=== PATIENT | male | born 1965 | race African-American/Black ===

== ENCOUNTER 2017-03-21 11:48 | Inpatient (IN) ==
[2017-03-21] MEDS ORDERED: NS 1,000 ML IV ONE (12:16)
--- NOTE | 2017-03-21 12:28 | Emergency Department Report ---
Seizure HPI - General Chief Complaint: Seizure Stated Complaint: Pos Seizure this morning Time Seen by Provider: 03/21/17 11:59 - History of Present Illness HPI Narrative: 52-year-old gentleman presents status post seizure. He has a history of moderate MR with family caring for him. His brother is here presently. Patient had a seizure this morning, continued postictal and the brother became concerned. He had seizures previously but has not had upper some time. He is currently not on any seizure medication. Patient was in the room being checked in and had a another seizure. This was an obviously tonic clonic generalized seizure, he vomited and aspirated during the seizure as we were rolling into his side. - Related Data Home Medications Medication Instructions Recorded Confirmed No known Home medications [No home 03/21/17 03/21/17 meds] Allergies Allergy/AdvReac Type Severity Reaction Status Date / Time Penicillins Allergy Unknown Verified 03/21/17 15:07 Review of Systems Limitations: ROS unobtainable due to patient's medical condition [facility] Patient Stated Medical History Seizures Yes Other Behavioral Health Yes: MR SINCE Surgical History: Negative per brother - Social History Smoking status: Never smoker Substance use type: does not use Alcohol intake frequency: does not drink Physical Exam - Limitations Limitations: altered mental status - General General appearance: obtunded - Normal Exams: Head:: Normocephalic without trauma Chest/Respirations:: Clear all vasquez, with good airflow, and symmetry bilaterally Cardiovascular:: Regular rate and rhythm, without murmur or gallop, Pulses 2+ all extremities, capillary refill, <2 seconds all extremities Abdomen:: Bowel sounds positive, soft, non-tender, non-distended, no hepatosplenomegaly, masses or bruits noted - Neurological Exam Neurological exam: Present: other (patient actively seizing during initial exam. Tonic-clonic activity noted. Patient nonresponsive. He did vomit and aspirate during the seizure.) Course Vital Signs Temperature 100.0 F 03/21/17 11:50 Pulse Rate 92 03/21/17 11:50 Respiratory Rate 16 03/21/17 11:50 Blood Pressure 144/71 H 03/21/17 11:50 Pulse Oximetry 96 03/21/17 11:50 Temperature 100.0 F 03/21/17 11:50 Pulse Rate 78 03/21/17 12:40 Respiratory Rate 22 03/21/17 13:37 Blood Pressure 144/71 H 03/21/17 11:50 Pulse Oximetry 95 03/21/17 13:37 Seizure - MDM Narrative Medical decision making narrative: Patient has been very high functioning, living on his own with a roommate. He holds down a job. 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 He has not been acting depressed or had any significant change in mood lately. No obvious cause for possible seizure at home is noted. White count returns at 16.8 with elevated anion gap and sodium is elevated at 147.. CT scan of brain was negative. Patient had 2 witnessed tonic-clonic generalized seizures while in the emergency department. With the initial seizure, he vomited and likely aspirated a small amount as he was coughing afterwards. He received 2 mg of Ativan both times which aborted the seizure. He was given 1 L of normal saline while in the emergency department. Phenytoin was started with initial dose of [address] Luna was consulted and came to see the patient. Patient will be admitted to hospitalist service for possible aspiration during seizure, elevated sodium, elevated anion gap. - Differential Diagnosis Likely: generalized seizure, new onset seizure, epileptic seizure - Medical Records Attestation: I reviewed the patient's medical records. - Lab Data Attestation: I reviewed the patient's lab results. Result diagrams: 03/21/17 12:22 03/21/17 12:22 Lab Results 03/21/17 03/21/17 Range/Units 12:22 12:22 WBC 16.8 H (4.5-11.0) T/MM3 RBC 5.27 (4.50-5.90) M/MM3 Hgb 15.2 (13.5-17.5) GM/DL Hct 46.3 (41-53) % MCV 87.9 (80-100) UM3 MCH 28.8 (26-34) UUG MCHC 32.8 (31-37) GM/DL RDW Std Deviation 44.0 (36.9-50.2) FL Plt Count 246 (130-400) T/MM3 MPV 10.2 (9.4-12.4) UM3 Neutrophils % (Manual) 81.0 H (33-66) % Band Neutrophils % 1.0 (0-6) % Lymphocytes % (Manual) 17.0 L (23-45) % Monocytes % (Manual) 1.0 (0-9.0) % RBC Morph Comment Normal Turbidity < 20 (0-20) Sodium 147 H (134-144) MEQ/L Potassium 4.3 (3.6-5) MEQ/L Chloride 109 H (98-107) MEQ/L Carbon Dioxide 20 L (22-30) MEQ/L Anion Gap 18 H (5-15) MEQ/L BUN 14.0 (9-20) MG/DL Creatinine 1.5 (0.8-1.5) MG/DL GFR Calculation 49 BUN/Creatinine Ratio 9 (6-26) RATIO Glucose 123 H (75-110) MG/DL Calculated Osmolality 284 H (261-280) MOSM/KG Calcium 9.6 (8.4-10.2) MG/DL Icterus Index < 2 (0-7) Prolactin 8.0 NG/ML Specimen Hemolysis < 15 (0-25) Disposition Clinical Impression: Generalized convulsive seizure Disposition: 02 To [facility] [place] Acute Care Condition: Stable Prescriptions: No Action No known Home medications [No home meds] 0 #0 misc Time of Disposition: 16:05 - Seen By: physician
--- NOTE | 2017-03-21 12:47 | CT Scan Report ---
Indication: seizure PROCEDURE: CT head/brain wo con: Encounter: Initial Comparison: October 15, 2008 Technique: Axial CT images through the head were performed without contrast. Iterative Reconstruction dose reducing technique was utilized. FINDINGS: The ventricles are of normal size, shape, and contour for the patient's age. The brainstem, cerebellum, and cerebral hemispheres have a normal morphology and CT attenuation. There is no evidence of midline displacement. No hemorrhage, signs of acute territorial stroke, mass effect, mass lesions, or edema is evident. The visualized portions of the skull base, midface, and calvarium demonstrate no abnormality. The paranasal sinuses are well aerated and free of significant disease. The tympanic and mastoid cavities appear normal. IMPRESSION: No acute intracranial abnormality or hemorrhage. .
--- NOTE | 2017-03-21 13:22 | XRay Report ---
INDICATION: seizure, aspiration PROCEDURE: CHEST 2-VIEWS UPRIGHT (PA & LAT) Encounter: Initial COMPARISON: None FINDINGS: The lungs are mildly hypoinflated, but grossly clear without evidence of focal abnormal airspace opacity. There is no pleural effusion or pneumothorax. The heart size, mediastinal contours and pulmonary vascularity are within normal limits. There is no significant skeletal abnormality. IMPRESSION: No acute cardiopulmonary disease. .
[2017-03-21] MEDS ORDERED: ALBUTEROL/IPRATROPIUM 2.5mg-0.5mg/3ml NEB AEROSOL ONE (13:23)
[2017-03-21] MEDS: SALINE FLUSH 10ml SYRINGE IVF PRN (14:23)
[2017-03-21] MEDS ORDERED: NS IV ONE (14:45)
[2017-03-21] MEDS ORDERED: PHENYTOIN IV ONE (14:45)
--- NOTE | 2017-03-21 16:32 | History & Physical Report ---
<Jhoana Au - Last Filed: 03/21/17 18:43> History of Present Illness Date: 03/21/17 Chief complaint: seizure HPI: Patient is a 52-year-old intellectually disabled male who presented to the emergency room status post seizure with his brother. Patient's brother received a phone call from patient's boss that he hadn't come to work so brother went to check on him at his home. Found him kneeling on the floor leaning on his bed. He was responsive, but lethargic and week. His brother and "lady friend" (who also have intellectual disability) were at the house with him. They reported he had been "shaking" earlier and suggested the brother go check on in him because he was still in bed. It was clear to his brother that patient had probably had a seizure so he brought him to the ER. Brother reports he thinks he has had some small seizures in the past, but has never been on seizure medicine. His PCP is Dr. Mcarthur, but brother reports he rarely needs to go to the doctor. 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 His brother manages his finances. He does not drive. He currently has a "lady friend" who is staying with him at his home. Patient was initially seen in the ER with his brother present. He is post- ictal and nonresponsive thus history is obtained from his brother. Patient recieved 2 doses of IV lorazepam 2mg for 2 seizures he experienced in the ED. Seizures responded to treatment. He was given a loading dose of dilantin in the ER and Dr. Luna saw patient in the ED as well. Dr Parish accepted patient for IP hospitalization following stabilization. 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 remote h/o head injury thought to possibly be the cause (or contribute to) his seizure d/o - had a bleed without intervention Surgical History: vasectomy Family History: Father - diabetes Mother - at age 52 of glioblastoma 2 siblings in infancy of pneumonia 2 living brothers - one with seizure d/o and intellectual disability, other brother in good health and is patient's caregiver - Social History Smoking status: Never smoker Substance use type: does not use Alcohol intake frequency: does not drink Household members: other (female friend (who also has intellectual disability)) Current residence: Apartment/Private Home Social history: never - no children Has a female "friend" who lives with him. He is a butter printer at [employer] and gets disability for blindness in one eye Brother in charge of his finances Patient does not drive. Rides bike for transportation. Brother - Dominic Gonzales [phone] Medications Home Medications Medication Instructions Recorded Confirmed Type No known Home medications [No home 03/21/17 03/21/17 History meds] Allergies Allergy/AdvReac Type Severity Reaction Status Date / Time Penicillins Allergy Unknown Verified 03/21/17 15:07 Exam Vital Signs: Temperature 100.0 F 03/21/17 11:50 Pulse Rate 78 03/21/17 12:40 Respiratory Rate 22 03/21/17 13:37 Blood Pressure 144/71 H 03/21/17 11:50 Pulse Oximetry 95 03/21/17 13:37 Height/Weight/BMI: Height 1.7 m Weight 69.4 kg - Constitutional Present: well nourished, well developed, obtunded - Routine HEENT Exam Head: Present: normocephalic, atraumatic Comments: unable to assess d/t mental status - Routine Neck Exam Absent: lymphadenopathy, thyromegaly - Routine Respiratory Exam Present: CTA bilaterally. Absent: wheezes - Routine Cardiovascular Exam Present: RRR, S1, S2. Absent: murmur - Routine Abdominal Exam Present: soft, normoactive bowel sounds, non distended. Absent: tenderness - Routine Extremities Exam Present: no edema, normal capillary refill - Routine Skin Exam Present: dry, warm - Routine Neurological Exam Present: altered mental status (patient is unresponsive at time of exam). Absent: alert, oriented X3 - Routine Psychiatric Exam Present: unable to assess Results - Labs CBC & Chem 7: 03/21/17 12:22 03/21/17 18:04 Labs: Laboratory Tests 03/21/17 18:04 Creatine Kinase 3847 H - Imaging and Cardiology Chest x-ray Additional comments: IMPRESSION: No acute cardiopulmonary disease. CT scan - head Additional comments: Date of Exam: 03/21/17 Ordering Provider: Scot Cole MD Type of Exam(s): CT head/brain wo con Reason for Exam(s): seizure Indication: seizure PROCEDURE: CT head/brain wo con: Encounter: Initial Comparison: October 15, 2008 Technique: Axial CT images through the head were performed without contrast. Iterative Reconstruction dose reducing technique was utilized. FINDINGS: The ventricles are of normal size, shape, and contour for the patient's age. The brainstem, cerebellum, and cerebral hemispheres have a normal morphology and CT attenuation. There is no evidence of midline displacement. No hemorrhage, signs of acute territorial stroke, mass effect, mass lesions, or edema is evident. The visualized portions of the skull base, midface, and calvarium demonstrate no abnormality. The paranasal sinuses are well aerated and free of significant disease. The tympanic and mastoid cavities appear normal. IMPRESSION: No acute intracranial abnormality or hemorrhage. . Assessment and Plan (1) Generalized convulsive seizure Current visit: Yes Status: Acute DVT Prophylaxis: SCD's GI Prophylaxis: Protonix Resuscitation Status: Full Code Assessment and Plan: Assessment Generalized convulsive seizure Leukocytosis (POA) Hypernatremia (POA) Possible aspiration pneumonia` Intellectual development disability Plan Admit to inpatient status under care of the hospitalist team, Dr. Parish attending, under seizure precautions. Await recommendations from ED consult with Dr. Luna. Start empiric treatment for aspiration pneumonia given witnessed aspiration in ED, leukocytosis and fever. Levaquin IV 750 daily and clindamycin IV 300 every 6 hours (patient has penicillin allergy-will avoid Rocephin) and DuoNeb treatments ordered. SCDs for DVT prophylaxis Protonix IV for GI protection Check ABGs given patient's acidotic status. Check CPK for possible rhabdomyolysis given unknown status of how long patient may have been down with seizure. IVF's for hydration maintenance and hypernatremia Dilantin maintenance dosing to start at 2300. Loading dose given in ER. Pharmacy consult ordered. Lorazepam IV PRN seizure activity NPO until mental status improves. Given patient's mental status, seizure disorder, probable aspiration pneumonia and intellectual disability, it is expected his stay will exceed 2 overnights. On dismissal, his brother will help patient choose who he will establish with as his PCP since Dr. Mcarthur has retired. He is probably going to have him establish with another provider at [facility]. He'll need f-u with neuro as well. Case discussed with Dr. Parish. Hospital Course Summary Disclaimer: The visit summary below is not to be considered part of the above Progress Note. Hospital Course: 03/21/17 Assessment Generalized convulsive seizure Leukocytosis (POA) Hypernatremia (POA) Possible aspiration pneumonia` Intellectual development disability Plan Admit to inpatient status under care of the hospitalist team, Dr. Parish attending, under seizure precautions. Await recommendations from ED consult with Dr. Luna. Start empiric treatment for aspiration pneumonia given witnessed aspiration in ED, leukocytosis and fever. Levaquin IV 750 daily and clindamycin IV 300 every 6 hours (patient has penicillin allergy-will avoid Rocephin) and DuoNeb treatments ordered. SCDs for DVT prophylaxis Protonix IV for GI protection Check ABGs given patient's acidotic status. Check CPK for possible rhabdomyolysis given unknown status of how long patient may have been down with seizure. IVF's for hydration maintenance and hypernatremia Dilantin maintenance dosing to start at 2300. Loading dose given in ER. Pharmacy consult ordered. Lorazepam IV PRN seizure activity NPO until mental status improves. Given patient's mental status, seizure disorder, probable aspiration pneumonia and intellectual disability, it is expected his stay will exceed 2 overnights. On dismissal, his brother will help patient choose who he will establish with as his PCP since Dr. Mcarthur has retired. He is probably going to have him establish with another provider at [facility]. He'll need f-u with neuro as well. Case discussed with Dr. Parish. <Rakesh Parish - Last Filed: 03/21/17 19:32> History of Present Illness Date: 03/21/17 [facility] Patient Stated Medical History Seizures Yes Other Behavioral Health Yes: MR SINCE Exam Vital Signs: Temperature 100.1 F 03/21/17 16:38 Pulse Rate 112 H 03/21/17 16:54 Respiratory Rate 20 03/21/17 17:50 Blood Pressure 123/73 03/21/17 16:51 Pulse Oximetry 95 03/21/17 17:50 Height/Weight/BMI: Height 5 ft 7 in Weight 72.2 kg Body Mass Index 24.9 Results - Labs CBC & Chem 7: 03/21/17 12:22 03/21/17 18:04 Assessment and Plan (1) Generalized convulsive seizure Current visit: Yes Status: Acute Assessment and Plan: Above pt was seen and examined with Jhoana in the ED. Pt was in post ictal, appeared to be in no respiratory distress. Was not arousable, had received Dilantin load and IM benzos. On PE No tachypnea No blood in oral cavity neck supple Chest RRR no murmurs fair air entry Abd - soft NT/ND Ext - no edema Labs reviewed. Initial elevated A gap probably due to Lactic acidosis, now is better. CPK is high. Dx 1) Grand mal seizures, continue IV dilantin 100 mg TID 2) ?Aspiration PNA ? NPO for now. - Cover as above 3) Rhabdomyolisis - due to seizures vs prolongued post ictal (being on the floor for a while) - Hydrate gently - F/U CPK - F/U BMP - Time spent with patient 25 - 35 minutes Hospital Course Summary Disclaimer: The visit summary below is not to be considered part of the above Progress Note.
[2017-03-21] MEDS ORDERED: PANTOPRAZOLE 40 MG INJECTION IVP SCH (17:04)
[2017-03-21] MEDS: NS 1,000 ML IV SCH (17:16)
[2017-03-21] MEDS: CLINDAMYCIN PB 300 MG/50 ML BAG IV SCH ×2 (17:26→23:17)
[2017-03-21 17:36] VITALS: BMI 24.9
[2017-03-21] MEDS: ALBUTEROL/IPRATROPIUM 2.5mg-0.5mg/3ml NEB AEROSOL SCH ×2 (17:40→21:48)
[2017-03-21] MEDS: PANTOPRAZOLE 40 MG INJECTION IVP SCH (18:04)
[2017-03-21] MEDS: LEVOFLOXACIN PB 750 MG/150 ML BAG IV SCH (18:10)
[2017-03-21] MEDS: PHENYTOIN 100 MG/2 ML IVP SCH (23:17)
[2017-03-22] MEDS: CLINDAMYCIN PB 300 MG/50 ML BAG IV SCH ×4 (05:10→23:09)
[2017-03-22] MEDS: PHENYTOIN 100 MG/2 ML IVP SCH ×3 (06:24→23:08)
[2017-03-22] MEDS: ALBUTEROL/IPRATROPIUM 2.5mg-0.5mg/3ml NEB AEROSOL SCH ×4 (06:38→21:16)
--- NOTE | 2017-03-22 08:08 | Consultation ---
DATE: 03/21/2017 REFERRING PHYSICIAN: Dr. Cole CHIEF COMPLAINT: Seizure. HISTORY OF PRESENT ILLNESS Patient is a 52-year-old male with history of mild mental retardation associated with possible cerebral palsy and developmental problem and learning disability. The patient was in his normal state of health yesterday. He woke up this morning having some mild confusion and he was witnessed having recurrent seizure at home. Those were described as generalized tonic-clonic events with arm in flexion, eyes opened, and increased body tone lasting for about 20-30 seconds each. The patient was brought to the ER and he had two seizures in the ER for which she was given 2 mg of Ativan each. The patient responded to medication fine. During one of the events he had some mild aspiration. He had a CT of the head that showed no acute abnormalities. He also had a chest x-ray that showed no particular problem at that moment. The patient was later loaded with Dilantin 1000 mg IV due to recurrent seizures. He has done well since. The patient has been sedated and seizure-free for the past hour. The patient has a history of head injury and trauma about 5-7 years ago during which he had a mild intracranial hemorrhage as per his brother's information. He had no seizure at that time. He also has a history of seizure during childhood which later improved. He was not taking any particular seizure medication. PHYSICAL EXAMINATION The patient is sedated. He is sleeping at the moment. His eyes are closed. Pupils were around 1 mm and reactive bilaterally. The patient was withdrawing to painful stimulation bilaterally. Deep tendon reflexes were 2-/4. Plantar reflexes were in flexion bilaterally. Vitals were stable. ASSESSMENT Complex partial seizure with generalized tonic-clonic presentation. 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 PLAN 1. The patient was infused with fosphenytoin earlier today. He got 1000 mg IV infusion. The patient can receive another 100 mg IV infusion every 8 hours until he becomes fully awake and alert. Then the patient can be switched to oral Dilantin capsule 300 mg p.o. q.h.s. The patient's level of Dilantin needs to be rechecked within 2 weeks and the dosage will be adjusted accordingly. 2. The patient will be admitted overnight for observation. If he has any breakthrough seizure he can be given another boost of Ativan to control his seizures. MTDD
[2017-03-22] MEDS: PANTOPRAZOLE 40 MG INJECTION IVP SCH (08:36)
[2017-03-22] MEDS: NS 1,000 ML IV SCH ×3 (08:36→20:55)
--- NOTE | 2017-03-22 11:23 | Progress Note ---
Subjective: PT is awake alert and conversant, has no complaints. Objective Vital signs: Temperature 98.9 F 03/22/17 08:00 Pulse Rate 78 03/22/17 08:00 Respiratory Rate 16 03/22/17 10:17 Blood Pressure 114/77 03/22/17 08:00 Pulse Oximetry 97 03/22/17 10:17 Rhythm: Normal Sinus Rhythm Height/Weight/BMI: Height 5 ft 7 in Weight 73.5 kg Body Mass Index 24.9 - Constitutional Present: no acute distress - Routine HEENT Exam Head: Present: normocephalic, atraumatic Eye: Present: EOMI, PERRL - Routine Respiratory Exam Present: CTA bilaterally - Routine Cardiovascular Exam Present: RRR - Routine Abdominal Exam Present: soft, non distended, non tender - Routine Extremities Exam Absent: cyanosis, clubbing, edema - Routine Neurological Exam Present: alert, oriented X3, CN II-XII intact - Routine Psychiatric Exam Present: normal affect, cooperative Results - Labs CBC & Chem 7: 03/22/17 04:49 03/22/17 04:49 - ABG Interpretation ABG results: 03/21/17 19:45 ABG pH 7.420 ABG pCO2 36 ABG pO2 73 L ABG HCO3 23 ABG Total CO2 24.5 ABG O2 Saturation 95.0 ABG Base Excess -0.7 Assessment and Plan (1) Generalized convulsive seizure Current visit: Yes Status: Acute DVT Prophylaxis: Lovenox GI Prophylaxis: Protonix Resuscitation Status: Full Code Assessment and Plan: SUMMARY - This is a 52 YO male with H.O remote seizures that came with grand mal seizures (witnessed in the ED). He was given IM benzos and loaded with Dilantin and is better today. DIAGNOSIS 1) Grand mal seizures - Will change to PO dilantin. - Continue present Rx. 2) ?Aspiration PNA ? NPO for now. - Check speech eval - Resume PO diet if OK with speech therapy. 3) Rhabdomyolisis - due to seizures vs prolongued post ictal (being on the floor for a while) - Increase IVF - Recheck CPK in the AM. Prevention PPI Lovenox. - Time spent with patient 25 - 35 minutes Sepsis Assessment - Evaluation Sepsis screening result: Sepsis Risk Hospital Course Summary Disclaimer: The visit summary below is not to be considered part of the above Progress Note. Hospital Course: 03/21/17 Assessment Generalized convulsive seizure Leukocytosis (POA) Hypernatremia (POA) Possible aspiration pneumonia` Intellectual development disability Plan Admit to inpatient status under care of the hospitalist team, Dr. Parish attending, under seizure precautions. Await recommendations from ED consult with Dr. Luna. Start empiric treatment for aspiration pneumonia given witnessed aspiration in ED, leukocytosis and fever. Levaquin IV 750 daily and clindamycin IV 300 every 6 hours (patient has penicillin allergy-will avoid Rocephin) and DuoNeb treatments ordered. SCDs for DVT prophylaxis Protonix IV for GI protection Check ABGs given patient's acidotic status. Check CPK for possible rhabdomyolysis given unknown status of how long patient may have been down with seizure. IVF's for hydration maintenance and hypernatremia Dilantin maintenance dosing to start at 2300. Loading dose given in ER. Pharmacy consult ordered. Lorazepam IV PRN seizure activity NPO until mental status improves. Given patient's mental status, seizure disorder, probable aspiration pneumonia and intellectual disability, it is expected his stay will exceed 2 overnights. On dismissal, his brother will help patient choose who he will establish with as his PCP since Dr. Mcarthur has retired. He is probably going to have him establish with another provider at [facility]. He'll need f-u with neuro as well. Case discussed with Dr. Parish.
--- NOTE | 2017-03-22 12:57 | XRay Report ---
INDICATION: F/U on ? of aspiration PROCEDURE: CHEST 2-VIEWS UPRIGHT (PA & LAT) Encounter: Initial COMPARISON: March 21, 2017 FINDINGS: Lungs remain hypoinflated. No gross consolidative process. No obvious pleural effusion or pneumothorax. Heart size and mediastinal contours are stable. Hiatal hernia. Impression: Hypoinflation without focal pneumonia or aspiration. .
[2017-03-22] MEDS: SALINE FLUSH 10ml SYRINGE IVF PRN (14:56)
[2017-03-22] MEDS: LEVOFLOXACIN PB 750 MG/150 ML BAG IV SCH (17:45)
[2017-03-23] MEDS: CLINDAMYCIN PB 300 MG/50 ML BAG IV SCH ×4 (04:39→23:03)
[2017-03-23] MEDS: NS 1,000 ML IV SCH ×5 (04:41→15:00)
[2017-03-23] MEDS: PHENYTOIN 100 MG/2 ML IVP SCH ×3 (06:32→23:02)
[2017-03-23] MEDS: ALBUTEROL/IPRATROPIUM 2.5mg-0.5mg/3ml NEB AEROSOL SCH ×4 (08:25→19:36)
[2017-03-23] MEDS: SALINE FLUSH 10ml SYRINGE IVF PRN (08:34)
[2017-03-23] MEDS: PANTOPRAZOLE 40 MG INJECTION IVP SCH (08:34)
--- NOTE | 2017-03-23 12:15 | Progress Note ---
Subjective: States he is feeling fine and denies any muscle aches or pains. Objective Vital signs: Temperature 97.8 F 03/23/17 07:39 Pulse Rate 62 03/23/17 07:39 Respiratory Rate 24 03/23/17 11:25 Blood Pressure 121/78 03/23/17 07:39 Pulse Oximetry 96 03/23/17 11:25 Rhythm: Normal Sinus Rhythm Height/Weight/BMI: Height 5 ft 7 in Weight 73.4 kg Body Mass Index 24.9 - Constitutional Present: no acute distress - Routine HEENT Exam Head: Present: normocephalic, atraumatic Eye: Present: EOMI, PERRL - Routine Respiratory Exam Present: CTA bilaterally - Routine Cardiovascular Exam Present: RRR - Routine Abdominal Exam Present: soft, non distended, non tender - Routine Extremities Exam Absent: cyanosis, clubbing, edema - Routine Skin Exam Present: intact - Routine Neurological Exam Present: alert, oriented X3, CN II-XII intact, moving all extremities - Routine Psychiatric Exam Present: normal affect, cooperative Results - Labs CBC & Chem 7: 03/23/17 05:22 03/23/17 05:22 - ABG Interpretation ABG results: 03/21/17 19:45 ABG pH 7.420 ABG pCO2 36 ABG pO2 73 L ABG HCO3 23 ABG Total CO2 24.5 ABG O2 Saturation 95.0 ABG Base Excess -0.7 Assessment and Plan (1) Generalized convulsive seizure Current visit: Yes Status: Acute DVT Prophylaxis: Lovenox GI Prophylaxis: other Resuscitation Status: Full Code Assessment and Plan: SUMMARY - This is a 52 YO male with H.O remote seizures that came with grand mal seizures (witnessed in the ED). He was given IM benzos and loaded with Dilantin and is better today. DIAGNOSIS 1) Rhabdomyolisis - probably due to seizures vs prolongued post ictal (being on the floor for a while), however there is a huge jump from yesterday on his CPK to above 20,000. - Increase IVF to 500cc of NS x 3 liters, then recheck labs - anticipate need to add Bicarbonate to his IVF. 2) Grand mal seizures - No recurrence. - Will change to PO dilantin. - Continue present Rx. 3) ?Aspiration suspected on admission Repeat CXR () showed "................................. PROCEDURE: CHEST 2-VIEWS UPRIGHT (PA & LAT) Encounter: Initial COMPARISON: March 21, 2017 FINDINGS: Lungs remain hypoinflated. No gross consolidative process. No obvious pleural effusion or pneumothorax. Heart size and mediastinal contours are stable. Hiatal hernia. Impression: Hypoinflation without focal pneumonia or aspiration. ............................................." Prevention PPI Lovenox. - Time spent with patient 25 - 35 minutes Sepsis Assessment - Evaluation Sepsis screening result: No Definite Risk Hospital Course Summary Disclaimer: The visit summary below is not to be considered part of the above Progress Note. Hospital Course: 03/21/17 Assessment Generalized convulsive seizure Leukocytosis (POA) Hypernatremia (POA) Possible aspiration pneumonia` Intellectual development disability Plan Admit to inpatient status under care of the hospitalist team, Dr. Parish attending, under seizure precautions. Await recommendations from ED consult with Dr. Luna. Start empiric treatment for aspiration pneumonia given witnessed aspiration in ED, leukocytosis and fever. Levaquin IV 750 daily and clindamycin IV 300 every 6 hours (patient has penicillin allergy-will avoid Rocephin) and DuoNeb treatments ordered. SCDs for DVT prophylaxis Protonix IV for GI protection Check ABGs given patient's acidotic status. Check CPK for possible rhabdomyolysis given unknown status of how long patient may have been down with seizure. IVF's for hydration maintenance and hypernatremia Dilantin maintenance dosing to start at 2300. Loading dose given in ER. Pharmacy consult ordered. Lorazepam IV PRN seizure activity NPO until mental status improves. Given patient's mental status, seizure disorder, probable aspiration pneumonia and intellectual disability, it is expected his stay will exceed 2 overnights. On dismissal, his brother will help patient choose who he will establish with as his PCP since Dr. Mcarthur has retired. He is probably going to have him establish with another provider at [facility]. He'll need f-u with neuro as well. Case discussed with Dr. Parish.
[2017-03-23] MEDS: LEVOFLOXACIN PB 750 MG/150 ML BAG IV SCH (17:01)
[2017-03-23] MEDS: SODIUM BICARBONATE 100 MEQ in D5W 1,000 ML IV SCH ×2 (18:17→23:05)
[2017-03-24] MEDS: CLINDAMYCIN PB 300 MG/50 ML BAG IV SCH ×2 (06:10→11:59)
[2017-03-24] MEDS: PHENYTOIN 100 MG/2 ML IVP SCH (07:31)
[2017-03-24] MEDS: ALBUTEROL/IPRATROPIUM 2.5mg-0.5mg/3ml NEB AEROSOL SCH ×4 (07:55→19:47)
[2017-03-24] MEDS: PANTOPRAZOLE 40 MG INJECTION IVP SCH (09:32)
[2017-03-24] MEDS: SALINE FLUSH 10ml SYRINGE IVF PRN ×3 (09:33→23:52)
[2017-03-24] MEDS ORDERED: NS FLUSH BAG 500ml IV PRN (11:59)
[2017-03-24] MEDS: NS 1,000 ML IV SCH (13:32)
--- NOTE | 2017-03-24 14:39 | Progress Note ---
Subjective: Pt has no complaints today, he is awake alert and oriented x 2 Objective Vital signs: Temperature 98.4 F 03/24/17 07:38 Pulse Rate 84 03/24/17 08:00 Respiratory Rate 16 03/24/17 11:45 Blood Pressure 129/81 03/24/17 07:38 Pulse Oximetry 95 03/24/17 11:45 Rhythm: Normal Sinus Rhythm Height/Weight/BMI: Height 5 ft 7 in Weight 74.7 kg Body Mass Index 24.9 - Constitutional Present: no acute distress - Routine HEENT Exam Head: Present: normocephalic, atraumatic Eye: Present: EOMI, PERRL - Routine Cardiovascular Exam Present: RRR, S1, S2 - Routine Abdominal Exam Present: soft - Routine Extremities Exam Absent: cyanosis, clubbing, edema - Routine Neurological Exam Present: alert - Routine Psychiatric Exam Present: normal affect, cooperative Results - Labs CBC & Chem 7: 03/24/17 10:34 03/24/17 10:34 - ABG Interpretation ABG results: 03/21/17 03/23/17 19:45 16:30 ABG pH 7.420 7.450 ABG pCO2 36 37 ABG pO2 73 L 68 L ABG HCO3 23 26 ABG Total CO2 24.5 26.8 ABG O2 Saturation 95.0 94.0 L ABG Base Excess -0.7 1.8 Assessment and Plan (1) Generalized convulsive seizure Current visit: Yes Status: Acute (2) Rhabdomyolysis Current visit: Yes Status: Acute DVT Prophylaxis: SCD's GI Prophylaxis: other Resuscitation Status: Full Code Assessment and Plan: SUMMARY - This is a 52 YO male with H.O remote seizures that came with grand mal seizures (witnessed in the ED). He was given IM benzos and loaded with Dilantin and is better today. DIAGNOSIS 1) Rhabdomyolisis - Initially probably due to seizures vs prolongued post ictal (being on the floor for a while), however the curve was going up exponentially after he was admitted. He had an IM injection at the ED but he does not complain of pain and does not have a white count elevation to suspect pyomyositis. - CPK LEVEL - 3,847 (03/21) - CPK LEVEL - 9,004 (03/22) - CPK LEVEL - 34,342 (03/23) LEVAQUIN D/C - CPK LEVEL - 20726 (03/24) - Levaquin has been reported to cause Rhadomyolisis in less than 1% of cases. - CPK is stabilizing, AST and ALT probably high due to rhabdo - Alk phos is normal. - Will again add IVF with Bicarbonate - at 150cc/hr - check UA for pH in the AM. - UA pH this AM - after bicarb drip - was 8.0 2) Grand mal seizures - No recurrence. - Change to PO dilantin. - Continue present Rx. 3) ?Aspiration suspected on admission Repeat CXR () showed "................................. PROCEDURE: CHEST 2-VIEWS UPRIGHT (PA & LAT) Encounter: Initial COMPARISON: March 21, 2017 FINDINGS: Lungs remain hypoinflated. No gross consolidative process. No obvious pleural effusion or pneumothorax. Heart size and mediastinal contours are stable. Hiatal hernia. Impression: Hypoinflation without focal pneumonia or aspiration. ............................................." - Change Clinda to PO. Prevention PPI Lovenox. - Time spent with patient 25 - 35 minutes Sepsis Assessment - Evaluation Sepsis screening result: No Definite Risk Hospital Course Summary Disclaimer: The visit summary below is not to be considered part of the above Progress Note. Hospital Course: 03/21/17 Assessment Generalized convulsive seizure Leukocytosis (POA) Hypernatremia (POA) Possible aspiration pneumonia` Intellectual development disability Plan Admit to inpatient status under care of the hospitalist team, Dr. Parish attending, under seizure precautions. Await recommendations from ED consult with Dr. Luna. Start empiric treatment for aspiration pneumonia given witnessed aspiration in ED, leukocytosis and fever. Levaquin IV 750 daily and clindamycin IV 300 every 6 hours (patient has penicillin allergy-will avoid Rocephin) and DuoNeb treatments ordered. SCDs for DVT prophylaxis Protonix IV for GI protection Check ABGs given patient's acidotic status. Check CPK for possible rhabdomyolysis given unknown status of how long patient may have been down with seizure. IVF's for hydration maintenance and hypernatremia Dilantin maintenance dosing to start at 2300. Loading dose given in ER. Pharmacy consult ordered. Lorazepam IV PRN seizure activity NPO until mental status improves. Given patient's mental status, seizure disorder, probable aspiration pneumonia and intellectual disability, it is expected his stay will exceed 2 overnights. On dismissal, his brother will help patient choose who he will establish with as his PCP since Dr. Mcarthur has retired. He is probably going to have him establish with another provider at [facility]. He'll need f-u with neuro as well. Case discussed with Dr. Parish.
[2017-03-24] MEDS: SODIUM BICARBONATE 100 MEQ in D5W 1,000 ML IV SCH ×2 (15:13→23:52)
[2017-03-24] MEDS: CLINDAMYCIN 150 MG CAPSULE PO SCH ×2 (18:21→21:50)
[2017-03-24] MEDS: PHENYTOIN 100 MG CAPSULE PO SCH (18:21)
[2017-03-25] MEDS: ALBUTEROL/IPRATROPIUM 2.5mg-0.5mg/3ml NEB AEROSOL SCH ×2 (07:19→11:08)
[2017-03-25] MEDS: SODIUM BICARBONATE 100 MEQ in D5W 1,000 ML IV SCH (08:33)
[2017-03-25] MEDS: CLINDAMYCIN 150 MG CAPSULE PO SCH (08:35)
[2017-03-25] MEDS: PHENYTOIN 100 MG CAPSULE PO SCH ×2 (08:35→20:53)
[2017-03-25] MEDS: PANTOPRAZOLE 40 MG INJECTION IVP SCH (08:37)
[2017-03-25] MEDS ORDERED: ALBUTEROL/IPRATROPIUM 2.5mg-0.5mg/3ml NEB AEROSOL PRN (12:23)
--- NOTE | 2017-03-25 12:27 | Progress Note ---
<Raquel Sinclair Nadir - Last Filed: 03/25/17 12:24> Subjective: Crispin is seen today in follow up. He reports feeling well. Denies further seizures. No pain. Eating well. He is a minimal historian. Chart is reviewed for collateral information. Objective Vital signs: Temperature 97.1 F 03/25/17 07:00 Pulse Rate 94 03/25/17 08:00 Respiratory Rate 20 03/25/17 07:15 Blood Pressure 130/87 03/25/17 07:00 Pulse Oximetry 95 03/25/17 07:15 Rhythm: Normal Sinus Rhythm Height/Weight/BMI: Height 1.7 m Weight 74.7 kg Body Mass Index 24.9 - Constitutional Present: no acute distress, average body habitus, cooperative - Routine HEENT Exam Head: Present: normocephalic, atraumatic Eye: Present: EOMI, PERRL ENT: Present: mucous membranes moist Comments: Dysconjugate gaze - Routine Respiratory Exam Present: CTA bilaterally, distant breath sounds. Absent: rales, rhonchi, wheezes Comments: He is not SOA. Lungs are clear. - Routine Cardiovascular Exam Present: RRR, S1, S2, no murmur - Routine Abdominal Exam Present: soft, normoactive bowel sounds, non distended, non tender - Routine Extremities Exam Present: no edema, non tender, full ROM - Routine Back/Spine/Pelvis Exam Back/Spine: Present: full ROM - Routine Musculoskeletal Exam Musculoskeletal: Present: no clubbing or cyanosis, no tenderness, no erythema, moving extremities well - Routine Skin Exam Present: intact, dry, warm - Routine Neurological Exam Present: alert, moving all extremities. Absent: sensory deficit, motor deficit - Routine Psychiatric Exam Present: cooperative Results - Labs CBC & Chem 7: 03/25/17 04:06 03/25/17 04:06 Labs: Laboratory Results - last 24 hr 03/25/17 03/25/17 03/25/17 04:06 04:06 06:37 WBC 9.1 RBC 4.87 Hgb 14.1 Hct 42.6 MCV 87.5 MCH 29.0 MCHC 33.1 RDW Std Deviation 42.5 Plt Count 172 MPV 10.2 Immature Gran % (Auto) 0.1 Neut % (Auto) 66.4 H Lymph % (Auto) 26.2 [place] % (Auto) 5.8 Eos % (Auto) 1.4 Baso % (Auto) 0.1 Neut # 6.1 Lymph # 2.4 [place] # 0.5 Eos # 0.1 Baso # 0.0 Abs Immat Gran (auto) 0.01 Turbidity < 20 Sodium 143 Potassium 3.6 Chloride 103 Carbon Dioxide 31 H Anion Gap 9 BUN 8.0 L Creatinine 0.8 GFR Calculation 102 BUN/Creatinine Ratio 10 Glucose 113 H Calculated Osmolality 274 Calcium 9.2 Phosphorus 4.5 Magnesium 1.7 Total Bilirubin 0.50 Icterus Index < 2 AST 654 H ALT 94 H Alkaline Phosphatase 65 Creatine Kinase 78341 H Total Protein 7.1 Albumin 3.8 Globulin 3.3 Albumin/Globulin Ratio 1.2 Specimen Hemolysis < 15 Ur Collection Type Urine, catheter Urine Color Yellow Urine Clarity Clear Urine pH 8.5 A Ur Specific Sanders 1.010 L Urine Protein Negative Urine Glucose (UA) Negative Urine Ketones Negative Urine Occult Blood 2+ A Urine Nitrate Negative Urine Bilirubin Negative Urine Urobilinogen 0.2 Ur Leukocyte Esterase Negative - ABG Interpretation ABG results: 03/21/17 03/23/17 19:45 16:30 ABG pH 7.420 7.450 ABG pCO2 36 37 ABG pO2 73 L 68 L ABG HCO3 23 26 ABG Total CO2 24.5 26.8 ABG O2 Saturation 95.0 94.0 L ABG Base Excess -0.7 1.8 - Impressions I have reviewed imaging. Assessment and Plan (1) Generalized convulsive seizure Current visit: Yes Status: Acute (2) Rhabdomyolysis Current visit: Yes Status: Acute DVT Prophylaxis: SCD's GI Prophylaxis: Protonix (DC- no further indication. ) Resuscitation Status: Full Code Assessment and Plan: Assessment Generalized convulsive seizure Leukocytosis (POA) Hypernatremia (POA) Possible aspiration pneumonia Intellectual development disability Elevated LFTs Rhabdomyolysis Acute acidosis, resolved. Plan: 03/25/17 *No further seizures. IV dilantin changed to PO yesterday. Dr. Samayoa recommended 300mg PO Q HS. Will change from TID to 300 Q HS. Continue to monitor. *Agree with Levaquin DC due to risk of lowered seizure threshold. Concern for aspiration on admission. Changes to PO clinda yesterday. Increase dosing to 300mg PO QID for full coverage. Repeat CXR tomorrow- if remains normal, DC ABX. *He no longer demonstrates acidosis, CO2 trending up. DC IVF with NaHCO3. Significant Rhabdo with elevated LFTs- likely due to acute seizures. Change IVF to NS with 20KCL, add IV Lasix for diuresis and clearance of CPK. Repeat labs in AM- monitor until CPK is near normal. Overall, he is doing well. Potentially can DC home when his CPK is normalizing. DC IV PPI- no longer indicated. - Time spent with patient 25 - 35 minutes Sepsis Assessment - Evaluation Sepsis screening result: No Definite Risk Hospital Course Summary Disclaimer: The visit summary below is not to be considered part of the above Progress Note. Hospital Course: 03/21/17 Assessment Generalized convulsive seizure Leukocytosis (POA) Hypernatremia (POA) Possible aspiration pneumonia` Intellectual development disability Elevated LFTs Rhabdomyolysis Acute acidosis, resolved. Plan Admit to inpatient status under care of the hospitalist team, Dr. Parish attending, under seizure precautions. Await recommendations from ED consult with Dr. Luna. Start empiric treatment for aspiration pneumonia given witnessed aspiration in ED, leukocytosis and fever. Levaquin IV 750 daily and clindamycin IV 300 every 6 hours (patient has penicillin allergy-will avoid Rocephin) and DuoNeb treatments ordered. SCDs for DVT prophylaxis Protonix IV for GI protection Check ABGs given patient's acidotic status. Check CPK for possible rhabdomyolysis given unknown status of how long patient may have been down with seizure. IVF's for hydration maintenance and hypernatremia Dilantin maintenance dosing to start at 2300. Loading dose given in ER. Pharmacy consult ordered. Lorazepam IV PRN seizure activity NPO until mental status improves. Given patient's mental status, seizure disorder, probable aspiration pneumonia and intellectual disability, it is expected his stay will exceed 2 overnights. On dismissal, his brother will help patient choose who he will establish with as his PCP since Dr. Mcarthur has retired. He is probably going to have him establish with another provider at [facility]. He'll need f-u with neuro as well. Case discussed with Dr. Parish. 03/25/17 12:28 SUMMARY - This is a 52 YO male with H.O remote seizures that came with grand mal seizures (witnessed in the ED). He was given IM benzos and loaded with Dilantin and is better today. DIAGNOSIS 1) Rhabdomyolisis - Initially probably due to seizures vs prolongued post ictal (being on the floor for a while), however the curve was going up exponentially after he was admitted. He had an IM injection at the ED but he does not complain of pain and does not have a white count elevation to suspect pyomyositis. - CPK LEVEL - 3,847 (03/21) - CPK LEVEL - 9,004 (03/22) - CPK LEVEL - 34,342 (03/23) LEVAQUIN D/C - CPK LEVEL - 14027 (03/24) - Levaquin has been reported to cause Rhadomyolisis in less than 1% of cases. - CPK is stabilizing, AST and ALT probably high due to rhabdo - Alk phos is normal. - Will again add IVF with Bicarbonate - at 150cc/hr - check UA for pH in the AM. - UA pH this AM - after bicarb drip - was 8.0 2) Grand mal seizures - No recurrence. - Change to PO dilantin. - Continue present Rx. 3) ?Aspiration suspected on admission Repeat CXR () negative - Change Clinda to PO. Prevention PPI Lovenox. 03/25/17 12:34 *No further seizures. IV dilantin changed to PO yesterday. Dr. Samayoa recommended 300mg PO Q HS. Will change from TID to 300 Q HS. Continue to monitor. *Agree with Levaquin DC due to risk of lowered seizure threshold. Concern for aspiration on admission. Changes to PO clinda yesterday. Increase dosing to 300mg PO QID for full coverage. Repeat CXR tomorrow- if remains normal, DC ABX. *He no longer demonstrates acidosis, CO2 trending up. DC IVF with NaHCO3. Significant Rhabdo with elevated LFTs- likely due to acute seizures. Change IVF to NS with 20KCL, add IV Lasix for diuresis and clearance of CPK. Repeat labs in AM- monitor until CPK is near normal. Overall, he is doing well. Potentially can DC home when his CPK is normalizing. DC IV PPI- no longer indicated. 03/25/17 12:35 <Shahla Guzman - Last Filed: 03/25/17 17:47> Objective Vital signs: Temperature 98 F 03/25/17 15:32 Pulse Rate 98 03/25/17 15:32 Respiratory Rate 16 03/25/17 15:35 Blood Pressure 130/83 03/25/17 15:32 Pulse Oximetry 94 03/25/17 15:32 Height/Weight/BMI: Height 1.7 m Weight 74.7 kg Body Mass Index 24.9 Results - Labs CBC & Chem 7: 03/25/17 04:06 03/25/17 04:06 - ABG Interpretation ABG results: 03/21/17 03/23/17 19:45 16:30 ABG pH 7.420 7.450 ABG pCO2 36 37 ABG pO2 73 L 68 L ABG HCO3 23 26 ABG Total CO2 24.5 26.8 ABG O2 Saturation 95.0 94.0 L ABG Base Excess -0.7 1.8 Assessment and Plan (1) Generalized convulsive seizure Current visit: Yes Status: Acute (2) Rhabdomyolysis Current visit: Yes Status: Acute Assessment and Plan: I have independently evaluated and examined this patient. I reviewed the chart, the patient's history, and the [employer]/PA's documented findings as above. We discussed and formulated the assessment and plan as above with additions as below: Jan reported that his been ambulating without difficulty and denied lightheadedness or myalgias. He denied dyspnea and indicated his appetite is good. On exam there is no tenderness on palpation over large muscle groups. Respirations nonlabored, breath sounds clear. Regular rhythm. CPK remains significantly elevated with corresponding elevation in transaminases. Continue fluids/diuresis. Monitor CPK pending further drop in level. No recurrent seizures. Hospital Course Summary Disclaimer: The visit summary below is not to be considered part of the above Progress Note.
[2017-03-25] MEDS: NS with KCL 20 mEq 1,000 ML IV SCH ×2 (13:21→20:49)
[2017-03-25] MEDS: CLINDAMYCIN 300 MG CAPSULE PO SCH ×3 (13:58→20:54)
[2017-03-25] MEDS: SALINE FLUSH 10ml SYRINGE IVF PRN (17:38)
[2017-03-25] MEDS: FUROSEMIDE 20 MG/2 ML INJECTION IVP SCH (17:38)
[2017-03-25] MEDS ORDERED: FALL RISK - PHARMACY CONSULT MC PRN (22:01)
[2017-03-26] MEDS: NS with KCL 20 mEq 1,000 ML IV SCH ×2 (03:59→11:35)
[2017-03-26] MEDS: SALINE FLUSH 10ml SYRINGE IVF PRN (08:46)
[2017-03-26] MEDS: FUROSEMIDE 20 MG/2 ML INJECTION IVP SCH (08:46)
[2017-03-26] MEDS: CLINDAMYCIN 300 MG CAPSULE PO SCH ×2 (08:46→13:29)
--- NOTE | 2017-03-26 08:48 | XRay Report ---
Indication: Possible aspiration Procedure: XR chest 2V: Encounter: Subsequent Comparison: 03/22/2017 Technique: PA and lateral radiographs of the chest were obtained. Findings: Lungs and airways: Low lung volumes. No focal airspace consolidation. Normal pulmonary vasculature. Pleura: No pleural effusion or pneumothorax. Heart and mediastinum: The cardiomediastinal silhouette and great vessels are within normal limits. Osseous structures and soft tissues: No acute osseous abnormality is seen. Impression: No acute cardiopulmonary process appreciated. .
[2017-03-26] MEDS: PHENYTOIN 100 MG CAPSULE PO SCH ×2 (11:46→20:07)
--- NOTE | 2017-03-26 13:40 | Progress Note ---
Subjective: Pt has no complaints, his CPK earlier could not be calculated so it was repeated. He denies any muscle aches or pains, is awake alert conversant. Objective Vital signs: Temperature 97.2 F 03/26/17 08:00 Pulse Rate 85 03/26/17 08:00 Respiratory Rate 14 03/26/17 08:00 Blood Pressure 150/94 H 03/26/17 08:00 Pulse Oximetry 95 03/26/17 08:00 Rhythm: Normal Sinus Rhythm Height/Weight/BMI: Height 5 ft 7 in Weight 74.7 kg Body Mass Index 24.9 - Constitutional Present: no acute distress - Routine HEENT Exam Head: Present: normocephalic, atraumatic Eye: Present: EOMI, PERRL - Routine Respiratory Exam Present: CTA bilaterally - Routine Cardiovascular Exam Present: RRR, S1, S2 - Routine Abdominal Exam Present: soft, non distended, non tender - Routine Extremities Exam Present: edema. Absent: cyanosis, clubbing - Routine Neurological Exam Present: alert, oriented X3 Results - Labs CBC & Chem 7: 03/26/17 05:36 03/26/17 05:36 - ABG Interpretation ABG results: 03/21/17 03/23/17 19:45 16:30 ABG pH 7.420 7.450 ABG pCO2 36 37 ABG pO2 73 L 68 L ABG HCO3 23 26 ABG Total CO2 24.5 26.8 ABG O2 Saturation 95.0 94.0 L ABG Base Excess -0.7 1.8 Assessment and Plan (1) Generalized convulsive seizure Current visit: Yes Status: Acute (2) Rhabdomyolysis Current visit: Yes Status: Acute DVT Prophylaxis: Lovenox GI Prophylaxis: other Assessment and Plan: SUMMARY - This is a 52 YO male with H.O remote seizures that came with grand mal seizures (witnessed in the ED). He was given IM benzos and loaded with Dilantin and is better today. DIAGNOSIS 1) Rhabdomyolisis - Initially probably due to seizures vs prolongued post ictal (being on the floor for a while), however the curve was going up exponentially after he was admitted. He had an IM injection at the ED but he does not complain of pain and does not have a white count elevation to suspect pyomyositis. - CPK LEVEL - 3,847 (03/21) - CPK LEVEL - 9,004 (03/22) - CPK LEVEL - 34,342 (03/23) LEVAQUIN D/C - CPK LEVEL - 39532 (03/24) - CPK LEVEL - 81665 (03/26) CREATININE IS 0.8 - Levaquin has been reported to cause Rhadomyolisis in less than 1% of cases. - CPK definitely trending down. - Continue close observation of his CPK and Kidney function. 2) Grand mal seizures - No recurrence since he was started on Dilantin. He had H.O Gran mal seizures in the remote past. - Change to PO dilantin 300mg PO QHS 3) ? Aspiration Pneumonitis: suspected on admission, CXR on 03/26 shows no infilrates will D/C antibiotics. Prevention PPI Lovenox. - Time spent with patient 25 - 35 minutes Sepsis Assessment - Evaluation Sepsis screening result: No Definite Risk Hospital Course Summary Disclaimer: The visit summary below is not to be considered part of the above Progress Note. Hospital Course: 03/21/17 Assessment Generalized convulsive seizure Leukocytosis (POA) Hypernatremia (POA) Possible aspiration pneumonia` Intellectual development disability Elevated LFTs Rhabdomyolysis Acute acidosis, resolved. Plan Admit to inpatient status under care of the hospitalist team, Dr. Parish attending, under seizure precautions. Await recommendations from ED consult with Dr. Luna. Start empiric treatment for aspiration pneumonia given witnessed aspiration in ED, leukocytosis and fever. Levaquin IV 750 daily and clindamycin IV 300 every 6 hours (patient has penicillin allergy-will avoid Rocephin) and DuoNeb treatments ordered. SCDs for DVT prophylaxis Protonix IV for GI protection Check ABGs given patient's acidotic status. Check CPK for possible rhabdomyolysis given unknown status of how long patient may have been down with seizure. IVF's for hydration maintenance and hypernatremia Dilantin maintenance dosing to start at 2300. Loading dose given in ER. Pharmacy consult ordered. Lorazepam IV PRN seizure activity NPO until mental status improves. Given patient's mental status, seizure disorder, probable aspiration pneumonia and intellectual disability, it is expected his stay will exceed 2 overnights. On dismissal, his brother will help patient choose who he will establish with as his PCP since Dr. Mcarthur has retired. He is probably going to have him establish with another provider at [facility]. He'll need f-u with neuro as well. Case discussed with Dr. Parish. 03/25/17 12:28 SUMMARY - This is a 52 YO male with H.O remote seizures that came with grand mal seizures (witnessed in the ED). He was given IM benzos and loaded with Dilantin and is better today. DIAGNOSIS 1) Rhabdomyolisis - Initially probably due to seizures vs prolongued post ictal (being on the floor for a while), however the curve was going up exponentially after he was admitted. He had an IM injection at the ED but he does not complain of pain and does not have a white count elevation to suspect pyomyositis. - CPK LEVEL - 3,847 (03/21) - CPK LEVEL - 9,004 (03/22) - CPK LEVEL - 34,342 (03/23) LEVAQUIN D/C - CPK LEVEL - 80207 (03/24) - Levaquin has been reported to cause Rhadomyolisis in less than 1% of cases. - CPK is stabilizing, AST and ALT probably high due to rhabdo - Alk phos is normal. - Will again add IVF with Bicarbonate - at 150cc/hr - check UA for pH in the AM. - UA pH this AM - after bicarb drip - was 8.0 2) Grand mal seizures - No recurrence. - Change to PO dilantin. - Continue present Rx. 3) ?Aspiration suspected on admission Repeat CXR () negative - Change Clinda to PO. Prevention PPI Lovenox. 03/25/17 12:34 *No further seizures. IV dilantin changed to PO yesterday. Dr. Samayoa recommended 300mg PO Q HS. Will change from TID to 300 Q HS. Continue to monitor. *Agree with Levaquin DC due to risk of lowered seizure threshold. Concern for aspiration on admission. Changes to PO clinda yesterday. Increase dosing to 300mg PO QID for full coverage. Repeat CXR tomorrow- if remains normal, DC ABX. *He no longer demonstrates acidosis, CO2 trending up. DC IVF with NaHCO3. Significant Rhabdo with elevated LFTs- likely due to acute seizures. Change IVF to NS with 20KCL, add IV Lasix for diuresis and clearance of CPK. Repeat labs in AM- monitor until CPK is near normal. Overall, he is doing well. Potentially can DC home when his CPK is normalizing. DC IV PPI- no longer indicated. 03/25/17 12:35
[2017-03-26] MEDS: SODIUM BICARBONATE 150 MEQ in D5W 1,000 ML IV SCH ×2 (14:43→21:54)
[2017-03-27] MEDS: SODIUM BICARBONATE 150 MEQ in D5W 1,000 ML IV SCH ×3 (05:50→21:40)
--- NOTE | 2017-03-27 11:38 | Progress Note ---
Subjective: Pt has no complaints today, he states he is feeling fine. Verbalized undestanding current plan of care. Objective Vital signs: Temperature 95.4 F L 03/27/17 07:37 Pulse Rate 71 03/27/17 07:37 Respiratory Rate 20 03/27/17 07:37 Blood Pressure 128/83 03/27/17 07:37 Pulse Oximetry 95 03/27/17 07:37 Rhythm: Normal Sinus Rhythm Height/Weight/BMI: Height 5 ft 7 in Weight 74.1 kg Body Mass Index 24.9 - Constitutional Present: no acute distress, well nourished, well developed - Routine HEENT Exam Head: Present: normocephalic, atraumatic - Routine Respiratory Exam Present: CTA bilaterally - Routine Cardiovascular Exam Present: RRR, S1, S2 - Routine Abdominal Exam Present: soft, non distended, non tender - Routine Extremities Exam Absent: cyanosis, clubbing, edema - Routine Neurological Exam Present: alert, oriented X3, CN II-XII intact - Routine Psychiatric Exam Present: normal affect, cooperative Results - Labs CBC & Chem 7: 03/27/17 04:58 03/27/17 04:58 - ABG Interpretation ABG results: 03/21/17 03/23/17 19:45 16:30 ABG pH 7.420 7.450 ABG pCO2 36 37 ABG pO2 73 L 68 L ABG HCO3 23 26 ABG Total CO2 24.5 26.8 ABG O2 Saturation 95.0 94.0 L ABG Base Excess -0.7 1.8 Assessment and Plan (1) Generalized convulsive seizure Current visit: Yes Status: Acute (2) Rhabdomyolysis Current visit: Yes Status: Acute DVT Prophylaxis: SCD's GI Prophylaxis: other Resuscitation Status: Full Code Assessment and Plan: SUMMARY - This is a 52 YO male with H.O remote seizures that came with grand mal seizures (witnessed in the ED). He was given IM benzos and loaded with Dilantin and is better today. DIAGNOSIS 1) Rhabdomyolisis - Initially probably due to seizures vs prolongued post ictal (being on the floor for a while), however the curve was going up exponentially after he was admitted. He had an IM injection at the ED but he does not complain of pain and does not have a white count elevation to suspect pyomyositis. - CPK LEVEL - 3,847 (03/21) - CPK LEVEL - 9,004 (03/22) - CPK LEVEL - 34,342 (03/23) LEVAQUIN D/C - CPK LEVEL - 30036 (03/24) - CPK LEVEL - 28123 (03/26) CREATININE IS 0.8 - CPK LEVEL - 8,217 (03/27) WITH NORMAL CREATININE. - Levaquin has been reported to cause Rhadomyolisis in less than 1% of cases. - CPK definitely trending down. - Anticipate D/C in the AM, home. 2) Grand mal seizures - No recurrence since he was started on Dilantin. He had H.O Gran mal seizures in the remote past. - Change to PO dilantin 300mg PO QHS 3) ? Aspiration Pneumonitis: suspected on admission, CXR on 03/26 shows no infilrates will D/C antibiotics. Prevention PPI Lovenox. - Time spent with patient 25 - 35 minutes Sepsis Assessment - Evaluation Sepsis screening result: No Definite Risk Hospital Course Summary Disclaimer: The visit summary below is not to be considered part of the above Progress Note. Hospital Course: 03/21/17 Assessment Generalized convulsive seizure Leukocytosis (POA) Hypernatremia (POA) Possible aspiration pneumonia` Intellectual development disability Elevated LFTs Rhabdomyolysis Acute acidosis, resolved. Plan Admit to inpatient status under care of the hospitalist team, Dr. Parish attending, under seizure precautions. Await recommendations from ED consult with Dr. Luna. Start empiric treatment for aspiration pneumonia given witnessed aspiration in ED, leukocytosis and fever. Levaquin IV 750 daily and clindamycin IV 300 every 6 hours (patient has penicillin allergy-will avoid Rocephin) and DuoNeb treatments ordered. SCDs for DVT prophylaxis Protonix IV for GI protection Check ABGs given patient's acidotic status. Check CPK for possible rhabdomyolysis given unknown status of how long patient may have been down with seizure. IVF's for hydration maintenance and hypernatremia Dilantin maintenance dosing to start at 2300. Loading dose given in ER. Pharmacy consult ordered. Lorazepam IV PRN seizure activity NPO until mental status improves. Given patient's mental status, seizure disorder, probable aspiration pneumonia and intellectual disability, it is expected his stay will exceed 2 overnights. On dismissal, his brother will help patient choose who he will establish with as his PCP since Dr. Mcarthur has retired. He is probably going to have him establish with another provider at [facility]. He'll need f-u with neuro as well. Case discussed with Dr. Parish. 03/25/17 12:28 SUMMARY - This is a 52 YO male with H.O remote seizures that came with grand mal seizures (witnessed in the ED). He was given IM benzos and loaded with Dilantin and is better today. DIAGNOSIS 1) Rhabdomyolisis - Initially probably due to seizures vs prolongued post ictal (being on the floor for a while), however the curve was going up exponentially after he was admitted. He had an IM injection at the ED but he does not complain of pain and does not have a white count elevation to suspect pyomyositis. - CPK LEVEL - 3,847 (03/21) - CPK LEVEL - 9,004 (03/22) - CPK LEVEL - 34,342 (03/23) LEVAQUIN D/C - CPK LEVEL - 89325 (03/24) - Levaquin has been reported to cause Rhadomyolisis in less than 1% of cases. - CPK is stabilizing, AST and ALT probably high due to rhabdo - Alk phos is normal. - Will again add IVF with Bicarbonate - at 150cc/hr - check UA for pH in the AM. - UA pH this AM - after bicarb drip - was 8.0 2) Grand mal seizures - No recurrence. - Change to PO dilantin. - Continue present Rx. 3) ?Aspiration suspected on admission Repeat CXR () negative - Change Clinda to PO. Prevention PPI Lovenox. 03/25/17 12:34 *No further seizures. IV dilantin changed to PO yesterday. Dr. Samayoa recommended 300mg PO Q HS. Will change from TID to 300 Q HS. Continue to monitor. *Agree with Levaquin DC due to risk of lowered seizure threshold. Concern for aspiration on admission. Changes to PO clinda yesterday. Increase dosing to 300mg PO QID for full coverage. Repeat CXR tomorrow- if remains normal, DC ABX. *He no longer demonstrates acidosis, CO2 trending up. DC IVF with NaHCO3. Significant Rhabdo with elevated LFTs- likely due to acute seizures. Change IVF to NS with 20KCL, add IV Lasix for diuresis and clearance of CPK. Repeat labs in AM- monitor until CPK is near normal. Overall, he is doing well. Potentially can DC home when his CPK is normalizing. DC IV PPI- no longer indicated. 03/25/17 12:35
[2017-03-27 15:31] VITALS: O2SAT 96
[2017-03-27] MEDS: SALINE FLUSH 10ml SYRINGE IVF PRN (20:39)
[2017-03-27] MEDS: PHENYTOIN 100 MG CAPSULE PO SCH (20:39)
[2017-03-28] MEDS: SODIUM BICARBONATE 150 MEQ in D5W 1,000 ML IV SCH ×2 (05:53→13:22)
[2017-03-28 07:11] VITALS: BP 133/87; PULSE 75; RESP 18; TEMP 97
[2017-03-28] MEDS: SALINE FLUSH 10ml SYRINGE IVF PRN (13:22)
--- NOTE | 2017-03-28 14:56 | Discharge Instructions ---
Discharge Plan - Med Rec/Dispo Mame Instructions: Epilepsy (GEN), Epilepsy (DC) Prescriptions: New Phenytoin Cap [Dilantin] 300 mg PO HS 30 Days #90 cap - Disposition 01 Discharged Home, Self-Care
--- NOTE | 2017-03-28 15:01 | Discharge Summary ---
Discharge Information Date of admission: 03/21/17 16:26 Anticipated date of discharge: 03/28/17 Attending Physician: Rakesh Parish MD - Discharge Diagnosis (1) Generalized convulsive seizure Status: Acute (2) Rhabdomyolysis Status: Acute - Laboratory Labs: 03/28/17 04:08 03/28/17 04:08 History of Present Illness HPI: Patient is a 52-year-old intellectually disabled male who presented to the emergency room status post seizure with his brother. Patient's brother received a phone call from patient's boss that he hadn't come to work so brother went to check on him at his home. Found him kneeling on the floor leaning on his bed. He was responsive, but lethargic and week. His brother and "lady friend" (who also have intellectual disability) were at the house with him. They reported he had been "shaking" earlier and suggested the brother go check on in him because he was still in bed. It was clear to his brother that patient had probably had a seizure so he brought him to the ER. Brother reports he thinks he has had some small seizures in the past, but has never been on seizure medicine. His PCP is Dr. Mcarthur, but brother reports he rarely needs to go to the doctor. 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 His brother manages his finances. He does not drive. He currently has a "lady friend" who is staying with him at his home. Patient was initially seen in the ER with his brother present. He is post- ictal and nonresponsive thus history is obtained from his brother. Patient recieved 2 doses of IV lorazepam 2mg for 2 seizures he experienced in the ED. Seizures responded to treatment. He was given a loading dose of dilantin in the ER and Dr. Luna saw patient in the ED as well. Dr Parish accepted patient for IP hospitalization following stabilization. Objective Vital signs: Temperature 97 F 03/28/17 07:09 Pulse Rate 75 03/28/17 07:09 Respiratory Rate 18 03/28/17 07:09 Blood Pressure 133/87 03/28/17 07:09 Pulse Oximetry 96 03/28/17 07:09 Rhythm: Normal Sinus Rhythm Height/Weight/BMI: Height 5 ft 7 in Weight 74.6 kg Body Mass Index 24.9 - Constitutional Present: no acute distress - Routine HEENT Exam Head: Present: normocephalic, atraumatic Eye: Present: EOMI, PERRL - Routine Respiratory Exam Present: CTA bilaterally - Routine Cardiovascular Exam Present: RRR, S1, S2 - Routine Abdominal Exam Present: soft, non distended, non tender - Routine Extremities Exam Absent: cyanosis, clubbing, edema - Routine Neurological Exam Present: alert, oriented X3, CN II-XII intact - Routine Psychiatric Exam Present: normal affect, cooperative Hospital Course This is a general summary of the patient's hospital course. For more details refer to the complete medical record. Hospital course: 03/21/17 Assessment (Admission) Generalized convulsive seizure Leukocytosis (POA) Hypernatremia (POA) Possible aspiration pneumonia` Intellectual development disability Elevated LFTs Rhabdomyolysis Acute acidosis, resolved. Hospital course - This is a 52 YO male with H.O remote seizures that came with grand mal seizures (witnessed in the ED). He was given IM benzos and loaded with Dilantin on admission and then was transferred to the floor. He developed Rhabdomyolisis either due to his seizures or due to LEVAQUIN. Due to the peak of the CPK levaquin could not be excluded as a cause. His CPK trended down and it is under 1000 today. He received hydration with Bicarbonate for the last 4 days. DIAGNOSIS 1) Grand mal seizures - No recurrence since he was started on Dilantin. He had H.O Gran mal seizures in the remote past. - D/C home on dilantin 300mg PO QHS - Check Dilantin level in 10 days - Rx given for dilantin 100mg # 3 PO QHS - # 90 + 2 refills. 3) Rhabdomyolisis - Initially probably due to seizures vs prolongued post ictal (being on the floor for a while), however the curve was going up exponentially after he was admitted. He had an IM injection at the ED but he does not complain of pain and does not have a white count elevation to suspect pyomyositis. - CPK LEVEL - 3,847 (03/21) - CPK LEVEL - 9,004 (03/22) - CPK LEVEL - 34,342 (03/23) LEVAQUIN D/C - CPK LEVEL - 94076 (03/24) - CPK LEVEL - 92776 (03/26) CREATININE IS 0.8 - CPK LEVEL - 8,217 (03/27) WITH NORMAL CREATININE. - CPK LEVEL - 578 WITH NORMAL CREATININE - Levaquin has been reported to cause Rhadomyolisis in less than 1% of cases. DISPOSITION. - HOME NOW. Time spent with patient: 25 - 35 minutes Discharge Plan - Med Rec/Dispo Mame Instructions: Epilepsy (DC), Epilepsy (GEN) Prescriptions: New Phenytoin Cap [Dilantin] 300 mg PO HS 30 Days #90 cap - Disposition 01 Discharged Home, Self-Care
== END 2017-03-28 16:15 | disposition home or self-care (01) | DRG 101 ==
LOC: ED 11:48 → CCU 16:14 → MED 16:26
PROVIDERS: ADMIT Internal Medicine; ATTEND Internal Medicine

== ENCOUNTER 2017-09-10 10:53 | Observation (INO) ==
[2017-09-10] MEDS ORDERED: LEVETIRACETAM INJ 1,000 MG in NS 100 ML IV ONE (11:32)
--- NOTE | 2017-09-10 11:33 | Emergency Department Report ---
General Adult HPI - General Chief complaint: Seizure Stated complaint: lethargy-tired Time Seen by Provider: 09/10/17 11:31 Source: patient, family, EMS Mode of arrival: EMS Limitations: other (MR) - History of Present Illness HPI narrative: 52-year-old male presents the emergency department with a chief complaint of seizure activity. Patient has a long-standing history of seizure activity. He is on Dilantin. He has been compliant with his Dilantin. Patient has had at least 3 witnessed episodes of seizure activity today prior to arrival to the emergency department. He denies any pain or discomfort. No other complaints or associated symptoms. No injury. Patient was seated during all of his seizure activities without falling to the ground. This is typical tonic-clonic grand mal seizure activity for the patient. He was at home when the symptoms began. No other complaints or associated symptoms. No injuries. History is limited secondary to MR. - Related Data Previous Rx's Medication Instructions Recorded Ibuprofen 800 mg PO Q8H PRN #20 tab 05/25/17 Dilantin Extended (phenytoin 200 mg PO HS #90 cap 06/15/17 sodium extended) 100mg capsule Dilantin Infatabs (phenytoin) 50 50 mg PO HS #30 tab 07/11/17 mg chewable tablet Allergies Allergy/AdvReac Type Severity Reaction Status Date / Time Penicillins Allergy Unknown Verified 09/10/17 11:07 levofloxacin [From Levaquin] Allergy Verified 09/10/17 11:07 Review of Systems Limitations: ROS unobtainable due to patient's medical condition [facility] Patient Stated Medical History Seizures Yes Other Behavioral Health Yes: [facility] Medical History (Last Updated 06/14/17 @ 09:54 by Sybil Hay MA) Blindness (Chronic Medical) Seizures (Chronic Medical) Surgical History: vasectomy Family History: Family History (Last Updated 06/14/17 @ 09:55 by Sybil Hay MA) Mother Brain tumor Father Diabetes - Social History Smoking status: Never smoker Substance use type: does not use Alcohol intake frequency: does not drink Household members: other Current occupational status: employed 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 Current residence: Apartment/Private Home Physical Exam - Limitations Limitations: other (MR) - General General appearance: alert, in no apparent distress - Normal Exams: Head:: Normocephalic without trauma Eyes:: Pupils are PERRLA w/ EOMI, No scleral icterus, irritation, or foreign bodies noted ENMT:: No facial trauma, nasal exudates, pharyngeal erythema, or exudates are noted Dental: No fractured, loose, or missing teeth noted Neck:: Full range of motion, without adenopathy, JVD, bruits or thyromegaly Chest/Respirations:: Clear all vasquez, with good airflow, and symmetry bilaterally Cardiovascular:: Regular rate and rhythm, without murmur or gallop, Pulses 2+ all extremities, capillary refill, <2 seconds all extremities Abdomen:: Bowel sounds positive, soft, non-tender, non-distended, no hepatosplenomegaly, masses or bruits noted Lymphatic:: No lymphadenopathy, or lymphedema noted Musculoskeletal:: No tenderness, or deformity noted, good range of motion, all extremities Integumentary:: No rashes, hives, or bruising noted, hair and nails, without abnormality Neurological:: Patient is alert (Does not comply with neuro exam. No obvious focal deficit. ) Course Vital Signs Temperature 99.9 F 09/10/17 10:59 Pulse Rate 94 09/10/17 10:59 Respiratory Rate 24 09/10/17 10:59 Pulse Oximetry 100 09/10/17 10:59 Temperature 100.2 F 09/10/17 14:11 Pulse Rate 97 09/10/17 14:11 Respiratory Rate 18 09/10/17 14:11 Blood Pressure 132/73 09/10/17 14:11 Pulse Oximetry 94 09/10/17 14:11 Medical Decision Making - [facility] Narrative Medical decision making narrative: Patient has a another episode of seizure activity as he is being placed into the room. Patient is loaded with Keppra 1 g intravenously at this time. Seizure broke prior to being able to administer Ativan. Patient has had a total of 4 episodes of seizure activity today. Patient is discussed with his neurologist Dr. Luna who recommends admission to the hospital and consult to him for further evaluation and treatment. After the Keppra is given the patient has no more seizure activity. Patient is admitted to the service of the hospitalist. No further orders from accepting or consulting physicians who were in agreement with the current plan of management. Patient is admitted to the hospital in improved condition. - Differential Diagnosis seizure disorder, medical noncompliance, metabolic disorder, UTI - Lab Data Result diagrams: 09/10/17 11:39 Lab Results 09/10/17 Range/Units 11:39 Turbidity < 20 (0-20) Sodium 144 (134-144) MEQ/L Potassium 4.7 (3.6-5) MEQ/L Chloride 105 (98-107) MEQ/L Carbon Dioxide 24 (22-30) MEQ/L Anion Gap 15 (5-15) MEQ/L BUN 13.0 (9-20) MG/DL Creatinine 0.8 (0.8-1.5) mg/dL GFR Calculation 102 BUN/Creatinine Ratio 16 (6-26) RATIO Glucose 107 (75-110) MG/DL Calculated Osmolality 277 (261-280) MOSM/KG Calcium 9.1 (8.4-10.2) MG/DL Icterus Index < 2 (0-7) Troponin I < 0.012 (0-0.12) ng/ml Specimen Hemolysis < 15 (0-25) Phenytoin 5.7 L (10-20) UG/ML - EKG Data EKG #1 EKG results narrative: Sinus Rhythm. 91 bpm. NO STEMI. 1st Degree AV Block. Disposition Clinical Impression: Recurrent seizures Disposition: To [facility] Acute Care Condition: Stable Time of Disposition: 12:45 (Admit. Dr. Lyman. ) - Seen By: physician
[2017-09-10 14:16] VITALS: BMI 25.7
[2017-09-10] MEDS ORDERED: PHENYTOIN 100 MG CAPSULE PO ONE (14:21)
--- NOTE | 2017-09-10 14:38 | History & Physical Report ---
History of Present Illness Date: 09/10/17 Chief complaint: Seizure HPI: Jan Gonzales is a 52 y/o male with a sz hx who is also intellectually disabled. He takes Dilantin for sz, and per Dominic, his brother's report, is responsible for taking his medicine each night (however Dominic arranges them into a pill box for him). Dominic does not believe he's missed any doses, but doesn't know for sure. Dominic denies any known illnesses (ie fever, cough/URI, appetite changes, v/d) and states that he's been in good health. Jan had at least 3 sz on 09/10/17, each of which involved the entire body in a tonic-clonic fashion which is typical for him. His sz usually only last for about 30 min but then he is very drowsy. He was taken to [facility] [place] [place] ED via EMS and had another sz soon after arriving to his room. Chemistry panel and UA were unremarkable. Phenytoin level was low at 5.7. Dr. Luna, Jan's neurologist, was contacted from the ED. Dr. Luna recommended to start Keppra, and the 1000 mg loading dose was administered in the ED. Dr. Sanchez was also notified, and admitted the patient into obs status. Review of Systems ROS unobtainable: due to mental status (Jan is postictal but awakens with verbal. He answers in 1-word responses. 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) Nose: Absent: obstruction Mouth/Throat: Absent: sore throat - Cardiovascular Cardiovascular: Absent: chest pain - Respiratory Respiratory: Absent: cough - Gastrointestinal Gastrointestinal: Absent: diarrhea, vomiting - Genitourinary Genitourinary: Present: other (no known problems) - Integumentary/Breasts Integumentary: Absent: rash, wounds - Neurological Neurological: Present: as per HPI - Psychiatric Psychiatric: Absent: anxiety, depression Past Medical History 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 Mother - of glioblastoma at age 52. 2 siblings of pneumonia as infants. 2 living brothers - 1 is healthy and is his caregiver and the other brother has a sz d/o and intellectual delay - Social History Smoking status: Never smoker Substance use type: does not use Alcohol intake frequency: does not drink Current residence: Apartment/Private Home Social history: PCP _ Dr. Paige Neuro _ Dr. Luna Medications Home Medications Medication Instructions Recorded Confirmed Type Ibuprofen 800 mg PO Q8H PRN #20 tab 05/25/17 09/10/17 Rx Dilantin Extended (phenytoin 200 mg PO HS #90 cap 06/15/17 09/10/17 Rx sodium extended) 100mg capsule Dilantin Infatabs (phenytoin) 50 50 mg PO HS #30 tab 07/11/17 09/10/17 Rx mg chewable tablet Allergies Allergy/AdvReac Type Severity Reaction Status Date / Time Penicillins Allergy Unknown Verified 09/10/17 11:07 levofloxacin [From Levaquin] Allergy Verified 09/10/17 11:07 Exam Vital Signs: Temperature 100.2 F 09/10/17 14:11 Pulse Rate 97 09/10/17 14:11 Respiratory Rate 18 09/10/17 14:11 Blood Pressure 132/73 09/10/17 14:11 Pulse Oximetry 94 09/10/17 14:11 Height/Weight/BMI: Height 1.7 m Weight 74.4 kg Body Mass Index 25.7 - Constitutional Present: no acute distress, well nourished, well developed - Routine HEENT Exam Head: Present: normocephalic, atraumatic Eye: Absent: EOMI (dysconjugate gaze), conjunctival icterus, scleral injection ENT: Present: mucous membranes moist, oropharynx clear - Routine Neck Exam Present: supple - Routine Respiratory Exam Present: CTA bilaterally - Routine Cardiovascular Exam Present: RRR, S1, S2 - Routine Abdominal Exam Present: soft, normoactive bowel sounds, non distended, non tender - Routine Extremities Exam Present: no edema, pulses intact - Routine Skin Exam Present: intact, dry, warm - Routine Neurological Exam Present: alert (drowsy but wakes up appropriately), oriented X3, CN II-XII intact (except for EOM which is chronic), moving all extremities, vision grossly intact, hearing grossly intact, normal speech. 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 Place in sz precautions. IVF of 1/2 NS may be dc'd once alert and taking in PO well. D/W Dr. Luna -- recommends treatment with both Dilantin and Keppra. Start Keppra 500 mg PO BID in am following completion of loading dose. Give Dilantin 200 mg x1 now and increase evening dose to 300 mg, starting tonight. Recheck Dilantin level in am. Check CBC. BMP and UA were unremarkable. D/W Dr. Sanchez. DVT Prophylaxis: SCD's Resuscitation Status: Full Code - Physician Narrative Physician: Mac Sanchez MD Narrative: Date: 09/10/17 Time: 1530 Have independently interviewed and examined pt. Chart reviewed. Case discussed with ED physician and my PHYSIC[employer]. Care plan developed with my supervision; agree with above. Resting in bed. Will open eyes, but not engage in conversation. Lungs: clear bilaterally, no distress on RA CV: regular AB: soft nt Plan: OBS secondary to recurrent seizure activity. Seizure precautions. Loaded with Keppra in ED-continue 500mg po BID starting tomorrow and increase Dilatin to 300mg at night. IVF for hydration. Consult placed with Dr Luna. Will check LFT on blood in lab. SCD for DVT prevention. Full code. Hospital Course Summary Disclaimer: The visit summary below is not to be considered part of the above Progress Note. Hospital Course: 09/10 Admit, obs status, under the hospitalist service. Place in sz precautions. IVF of 1/2 NS may be dc'd once alert and taking in PO well. D/W Dr. Luna -- recommends treatment with both Dilantin and Keppra. Start Keppra 500 mg PO BID in am following completion of loading dose. Give Dilantin 200 mg x1 now and increase evening dose to 300 mg, starting tonight. Recheck Dilantin level in am. Check CBC. BMP and UA were unremarkable.
[2017-09-10] MEDS: 1/2 NS 1,000 ML IV SCH (15:57)
--- NOTE | 2017-09-10 16:15 | Consultation ---
DATE OF CONSULTATION 09/10/[address] Sanchez PATIENT'S CHIEF COMPLAINT Seizure. HISTORY OF PRESENT ILLNESS Patient is a 52-year-old male with history of seizure disorder, mental retardation and traumatic brain injury. The patient presented earlier today to the ER with recurrent seizure problem. He has had at least three witnessed generalized tonic-clonic seizures all of which happened while he was sitting in a chair. He suffered no injury to his head or body. Patient's seizures were short in duration, less than one minute each. The patient was loaded with Keppra in the ER. His seizures stopped since then. His Dilantin level was low at 5.7. The patient has been taking Dilantin 250 mg p.o. q.h.s. regularly with good compliance. His lab showed no other significant medical problems. The patient is currently back to his baseline. He denies having any headache, any vision problem and no pain. PHYSICAL EXAMINATION On physical examination, the patient was awake, alert, oriented to self and situation. Pupils were round, reactive and equal. Extraocular muscles were abnormal with non-conjugate eye movement problem associated with his old brain injury. Patient's speech was slow and articulate. His motor examination was 5- /5 in the arms and 4 to 4+/5 in the lower extremities. Sensory examination was symmetrical to light touch and pinprick. Deep tendon reflexes were 2/4. Plantar reflex was in flexion bilaterally. Coordination was slow bilaterally. ASSESSMENT 1. Intractable complex partial seizure treated with Dilantin. The patient had a low Dilantin level which could have provoked some of his seizures earlier today. PLAN 1. Increase daily dosage of Dilantin to 300 mg p.o. q.h.s. 2. Give a boost dosage of Dilantin 200 mg x1 now. 3. Start patient on Keppra 500 mg p.o. b.i.d., first dosage given tomorrow morning. 4. Obtain a new Dilantin level in the morning lab tomorrow. 5. Seizure precautions, good fluid intake and avoid sleep deprivation. MTDD
[2017-09-10] MEDS ORDERED: PHENYTOIN 100 MG CAPSULE PO SCH (21:00)
[2017-09-11 03:48] VITALS: RESP 16; TEMP 96.8; O2SAT 96
[2017-09-11] MEDS: 1/2 NS 1,000 ML IV SCH (05:47)
[2017-09-11 07:57] VITALS: BP 125/67; PULSE 61
[2017-09-11] MEDS ORDERED: LEVETIRACETAM 500 MG TABLET PO SCH (09:00)
--- NOTE | 2017-09-11 11:51 | Discharge Summary ---
Discharge Information Date of admission: 09/10/17 13:14 Anticipated date of discharge: 09/11/17 Attending Physician: Mac Sanchez MD Primary care physician: Solis Paige DO Consults: Dr. 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 He takes Dilantin for sz, and per Dominic, his brother's report, is responsible for taking his medicine each night (however Dominic arranges them into a pill box for him). Dominic does not believe he's missed any doses, but doesn't know for sure. Dominic denies any known illnesses (ie fever, cough/URI, appetite changes, v/d) and states that he's been in good health. Jan had at least 3 sz on 09/10/17, each of which involved the entire body in a tonic-clonic fashion which is typical for him. His sz usually only last for about 30 min but then he is very drowsy. He was [place] [facility] [place] and had another sz soon after arriving to his room. Chemistry panel and UA were unremarkable. Phenytoin level was low at 5.7. Dr. Luna, Jan's neurologist, was contacted from the ED. Dr. Luna recommended to start Keppra, and the 1000 mg loading dose was administered in the ED. Dr. Sanchez was also notified, and admitted the patient into obs status. Objective Vital signs: Temperature 96.8 F 09/11/17 00:00 Pulse Rate 61 09/11/17 07:56 Respiratory Rate 16 09/11/17 07:56 Blood Pressure 125/67 09/11/17 07:56 Pulse Oximetry 96 09/11/17 07:56 Height/Weight/BMI: Height 1.7 m Weight 74.5 kg Body Mass Index 25.7 - Constitutional Present: no acute distress, well nourished, well developed, thin - Routine HEENT Exam Head: Present: normocephalic Eye: Absent: normal accommodation (dysconjugate eyes - chronic), conjunctival icterus, scleral injection - Routine Respiratory Exam Present: CTA bilaterally - Routine Cardiovascular Exam Present: RRR, S1, S2 - Routine Abdominal Exam Present: soft, normoactive bowel sounds, non distended, non tender - Routine Extremities Exam Present: no edema - Routine Musculoskeletal Exam Musculoskeletal: Present: no clubbing or cyanosis - Routine Skin Exam Present: intact, dry, warm - Routine Neurological Exam Present: alert, oriented X3, CN II-XII intact, normal speech - Routine Psychiatric Exam Present: normal affect, normal thought process, cooperative Hospital Course This is a general summary of the patient's hospital course. For more details refer to the complete medical record. Hospital course: Jan Gonzales was admitted to observation status on 09/10/17 for recurrent seizures. His seizures prior to admission were short lived lasting about 30 sec , none of which were treated with a benzodiazepine. On admit, his phenytoin level was low at 5.7. Dr. Luna was consulted from the ED and recommended to give him a loading dose of Keppra, 1000 mg IV. Following this, he recommended to give an additional dose of PO dilantin then to increase his evening dose of dilantin from 250 mg to 300 mg. Labs on admission showed mild leukocytosis which resolved by the following morning. No infectious source was suspected. He was provided with 1/2 NS for hydration. By the next day Jan was feeling well. He did not have any further seizures through the night. His repeat phenytoin level was low at 4.7. He was able to eat and take in PO well. Jan was stable for discharge on 09/11/17. His brother, Dominic, was also present and agreed with the discharge plan. Jan should f/u with Dr. Luna in 2 weeks. Time spent with patient: discharge greater than 30 minutes Resuscitation Status: Full Code Discharge Plan - Discharge Disposition Discharge Date: 09/11/17 Disposition: 01 Discharged Home, Self-Care *Condition: Stable Reason For Visit (Visit label in EMR): seizure - Discharge Medications *Discharge Medications: New Levetiracetam [Keppra] 500 mg PO BID #60 tab Continue Ibuprofen 800 mg PO Q8H PRN #20 tab PRN Reason: Pain Changed Phenytoin Cap [Dilantin 100 mg Cap] 300 mg PO HS #90 cap Discontinued Dilantin Infatabs (phenytoin) 50 mg chewable tablet 50 mg PO HS #30 tab - Discharge Packet/Instructions *Diet: Regular. *Activity: As tolerated. *Pain Management/Treatment: Ibuprofen if needed. Take this with food. *Wound Care: Not applicable. Additional Instructions: Try to get a good night's sleep each night. Sleeping poorly may trigger a seizure. *Expected Signs/Symptoms: You may be tired from your hospital stay. *Notify Physician if: Recurrent seizures. Confusion or passing out. Fever. Difficulty breathing or chest pain. Dehydration (such as vomiting or diarrhea). *During Business Hours Contact: Dr. Paige's or Dr. Luna's office. *After Business Hours Contact: The on-call provider for Dr. Paige. *Pending Lab/Results: No Pending Lab - Referrals/Follow Up *Referrals/Follow Up: Solis Paige DO [Family Provider] - 1 Week Xiomy Luna MD [Physician] - 2 Weeks (have dilantin level rechecked APPOINTMENT 09/24 AT 1PM.) - Patient Handouts - Dismissal Complete Discharge Instructions are:: Complete Physician Narrative - Narrative Physician: Mac Sanchez MD Attestation Narrative: Date: 09/11/17 Time: 1213 I have independently interviewed and examined patient prior to discharge. Chart reviewed. Case discussed with CM and my [employer]. Care plan developed with my supervision; agree with above. Doing better today-awake and alert. Breathing well-not having SOA or congestion. No nausea or ab pain. Lungs: clear bilaterally, no distress on RA. CV: regular AB: soft nt/nd MSE: awake alert Plan: Medically stable for discharge to home. See orders for details.
== END 2017-09-11 14:45 | disposition home or self-care (01) ==
LOC: ED 10:53 → MED 10:53
PROVIDERS: ADMIT Hospitalist; ATTEND Hospitalist